=== PATIENT | female | born 1980 | race Caucasian/White ===

== ENCOUNTER 2017-07-25 14:05 | Emergency (ER) | payer OTHER ==
[~2017-07-25] VITALS: Ht 160 cm; Wt 54.4 kg
[2017-07-25 15:46] LABS: BASOPHIL % 0.8 % (0-2); PLATELET COUNT 265 x10^3mcL (130-400); RED CELL DISTRIBUTION WIDTH 13.1 % (11.5-14.5)
[2017-07-25 15:55] LABS: CALCIUM 9.4 mg/dL (8.5-10.1); CARBON DIOXIDE 26.4 mmol/L (21-32); CHLORIDE SERUM 106 mmol/L (98-107); CREATININE SERUM 0.6 mg/dL (0.6-1.0); GFR1 > 60 mL/min; GLUCOSE SERUM 98 mg/dL (74-106); POTASSIUM SERUM 3.6 mmol/L (3.5-5.1); SODIUM SERUM 143 mmol/L (136-145)
[2017-07-25 15:59] LABS: ALBUMIN 4.2 g/dL (3.4-5.0); ALKALINE PHOSPHATASE 57 U/L (46-116); ALT/SGPT 20 U/L (14-59); AST/SGOT 20 U/L (15-37); BILIRUBIN TOTAL 0.77 mg/dL (0.20-1.00)
[2017-07-25 16:01] LABS: CHOLESTEROL 123 mg/dL (<200)
[2017-07-25 16:30] LABS: AMPHETAMINE QUAL UR NONE DETECTED (NEG <=1000)
[2017-07-25 17:30] VITALS: BP 133/75
== END 2017-07-25 18:02 ==
LOC: ED 14:05
PROVIDERS: Emergency Medicine
DX: F29 Unspecified psychosis not due to a substance or known physiological condition (principal); F32.9 Major depressive disorder, single episode, unspecified; Z88.1 Allergy status to other antibiotic agents; Z86.59 Personal history of other mental and behavioral disorders
CPT/HCPCS: 36415; 83880; G0480